=== PATIENT | male | born 1980 | race American Indian/Alaskan Native ===

== ENCOUNTER 2018-12-27 20:56 | Emergency (ER) | payer OTHER ==
[2018-12-27 21:04] VITALS: BP 130/81
--- NOTE | 2018-12-27 21:04 | Emergency Department Report ---
Blank Doc - Documentation Documentation: this is a 38-year-old male that presents with intermittent chest pain with SOB. Stated it started since he started his new job. Denies any history of cardiac. This initial assessment/diagnostic orders/clinical plan/treatment(s) is/are subject to change based on patient's health status, clinical progression and re- assessment by fellow clinical providers in the ED. Further treatment and workup at subsequent clinical providers discretion. Patient/guardians urged not to el ope from the ED as their condition may be serious if not clinically assessed and managed. Initial orders include: 1- Patient sent to [facility] for further evaluation and treatment 2- labs 3- CXR 4- EKG
[2018-12-27 21:29] LABS: Basophils % (Auto) 0.7 % (0.0-1.8); Eosinophils % (Auto) 0.4 % (0.0-4.3); Hematocrit 43.7 % (35.5-45.6); Hemoglobin 14.4 gm/dl (11.8-15.2); Lymphocytes % (Auto) 14.6 % (13.4-35.0); Mean Corpuscular HGB Conc 33 % (32-34); Mean Corpuscular Volume 87 fl (84-94); Monocytes # (Auto) 0.5 K/mm3 (0.0-0.8); Monocytes % (Auto) 6.8 % (0.0-7.3); Platelet Count 282 K/mm3 (140-440); Red Blood Count 5.02 M/mm3 (3.65-5.03)
[2018-12-27 21:41] LABS: INR 0.99 (0.87-1.13)
[2018-12-27 21:46] LABS: BUN/Creatinine Ratio 9; Blood Urea Nitrogen 9 mg/dL (9-20); Calcium 8.7 mg/dL (8.4-10.2); Hemolysis Index 20
[2018-12-27 21:47] LABS: Partial Thromboplastin Time 31.2 Sec. (24.2-36.6)
--- NOTE | 2018-12-28 00:07 | XRay Report ---
PROCEDURE: XR CHEST ROUTINE 2V TECHNIQUE: PA and lateral chest HISTORY: Dyspnea COMPARISONS: No priors FINDINGS: Cardiomediastinal silhouette within normal limits. No evidence of airspace consolidation or pleural effusions. Pulmonary vasculature are within normal limits. IMPRESSION: No radiographic evidence of acute cardiopulmonary disease.. This document is electronically signed by Duane Desir MD., December 28 2018 12:05:58 AM ET
--- NOTE | 2018-12-28 01:45 | Emergency Department Report ---
ED General Adult HPI - General Chief complaint: Dyspnea/Respdistress Stated complaint: SHORTNESS OF BREATH Time Seen by Provider: 12/27/18 21:02 Source: patient Mode of arrival: Ambulatory Limitations: No Limitations - History of Present Illness Initial comments: Pt is a 38 yo male who presents to the ED with c/o SOB that began three months ago. 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 He states he has a dry cough and SOB while he is at work. he states he has chest discomfort only after coughing. He denies any symptoms at all currently. The patient denies any hem optysis, LE edema, recent travel, recent immobilization, recent surgery. The patient denies any PMHx and does not take any medication. Severity scale (0 -10): 0 - Related Data Allergies Allergy/AdvReac Type Severity Reaction Status Date / Time No Known Allergies Allergy Unverified 12/27/18 21:01 ED Review of Systems ROS: Stated complaint: SHORTNESS OF BREATH Other details as noted in HPI Comment: All other systems reviewed and negative ED Past Medical Hx - Past Medical History Previous Medical History?: No - Surgical History Past Surgical History?: No - Social History Smoking Status: Current Every Day Smoker Substance Use Type: Marijuana ED Physical Exam - General Limitations: No Limitations General appearance: alert, in no apparent distress - Head Head exam: Present: atraumatic, normocephalic - Eye Eye exam: Present: normal appearance - ENT ENT exam: Present: normal orophraynx, mucous membranes moist, other (nasal drainage present in the right nare) - Respiratory Respiratory exam: Present: normal lung sounds bilaterally. Absent: respiratory distress, wheezes, rales, rhonchi, stridor, chest wall tenderness, accessory muscle use, decreased breath sounds, prolonged expiratory - Cardiovascular Cardiovascular Exam: Present: regular rate, normal rhythm, normal heart sounds. Absent: systolic murmur, diastolic murmur, rubs, gallop - Neurological Exam Neurological exam: Present: alert, oriented X3 - Psychiatric Psychiatric exam: Present: normal affect, normal mood - Skin Skin exam: Present: warm, dry, intact ED Course Vital Signs 12/27/18 12/27/18 21:01 21:02 Temperature 97.7 F 97.7 F Pulse Rate 101 H 98 H Respiratory 18 18 Rate Blood Pressure 130/81 130/81 O2 Sat by Pulse 99 98 Oximetry ED Medical Decision Making - Lab Data Result diagrams: 12/27/18 21:11 12/27/18 21:11 - EKG Data -: EKG Interpreted by Me EKG shows normal: sinus rhythm, axis, intervals Rate: normal - EKG Data 12/28/18 01:49 EKG shows LVH, otherwise normal - Radiology Data Radiology results: report reviewed PROCEDURE: XR CHEST ROUTINE 2V TECHNIQUE: PA and lateral chest HISTORY: Dyspnea COMPARISONS: No priors FINDINGS: Cardiomediastinal silhouette within normal limits. No evidence of airspace consolidation or pleural effusions. Pulmonary vasculature are within normal limits. IMPRESSION: No radiographic evidence of acute cardiopulmonary disease.. This document is electronically signed by Duane Desir MD., December 28 2018 12:05:58 AM ET - Medical Decision Making Pt is a 38 yo male who presents to the ED with c/o SOB that began three months ago. 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 He states he has a dry cough and SOB while he is at work. he states he has chest discomfort only after coughing. He denies any symptoms at all currently. The patient denies any hemoptysis, LE edema, recent travel, recent immobilization, recent surgery. The patient denies any PMHx and does not take any medication. VSS, oxygen saturation is 99% on RA. CXR with no acute process. EKG with LVH otherwise normal. Labs WNL. On examination lungs are clear, no w/r/r. Will have pt follow up with his PCP In the next 2-3 days. Advised pt to use a N-95 mask and googles while at wor k. Advised to return to the emergency room for any new or worsening symptoms. Critical care attestation.: If time is entered above; I have spent that time in minutes in the direct care of this critically ill patient, excluding procedure time. ED Disposition Clinical Impression: SOB (shortness of breath) Disposition: DC-01 TO HOME OR SELFCARE Is pt being admited?: No Does the pt Need Aspirin: No Condition: Stable Instructions: Dyspnea (ED) Additional Instructions: Please follow up with your primary care doctor In the next 2-3 days. Please use a N-95 mask and googles while at work. Return to the emergency room for any new or worsening symptoms. Referrals: ALONA GUIDRY MD [Primary Care Provider] - 2-3 Days Time of Disposition: 01:48 Print Language: [place]
== END 2018-12-28 01:55 | disposition home or self-care (01) ==
LOC: ED 20:56
DX: R06.02 Shortness of breath (principal); R05 Cough; R07.89 Other chest pain; F17.200 Nicotine dependence, unspecified, uncomplicated; F12.10 Cannabis abuse, uncomplicated
CPT/HCPCS: 36415; 71046; 80048; 84484; 85025; 85610; 85730; 93005; 93010